=== PATIENT | female | born 1975 | race Caucasian/White ===

== ENCOUNTER 2023-10-09 04:46 | Inpatient (IN) ==
[2023-10-09] MEDS ORDERED: IOPAMIDOL 100 ML BOTTLE IV ONE (04:47)
[2023-10-09 06:06] LABS: Basophils # (Auto) 0.06 K/mcL (0.00-0.30); Basophils % (Auto) 0.6 % (0.0-2.0); Eosinophils # (Auto) 1.01 K/mcL (0.00-0.70); Eosinophils % (Auto) 10.8 % (0.0-7.0); Hemoglobin 12.6 g/dL (11.2-15.7); Lymphocytes # (Auto) 1.75 K/mcL (1.50-4.80); Lymphocytes % (Auto) 18.7 % (15.5-49.0); Mean Cell Volume 90.7 fL (80.0-100.0); Mean Corpuscular HGB Conc 33.2 g/dL (31.0-36.0); Mean Platelet Volume 11.8 fL (8.8-12.5); Monocytes # (Auto) 0.45 K/mcL (0.10-0.90); Monocytes % (Auto) 4.8 % (1.0-12.0); Neutrophils % (Auto) 64.9 % (38.0-78.0); Platelet Count 212 K/mcL (140-440); RBC 4.19 M/mcL (3.59-5.38); Red Cell Distribution Width 12.7 % (11.5-14.5); WBC 9.4 K/mcL (4.5-11.0)
[2023-10-09 06:09] LABS: ALT/SGPT < 5 U/L (<40); AST/SGOT 13 U/L (<32); Albumin 4.2 gm/dL (3.2-5.2); Albumin/Globulin Ratio 1.6 (1.0-2.3); Alkaline Phosphatase 64 U/L (39-117); Bilirubin,Total 0.3 mg/dL (0.1-1.0); Blood Urea Nitrogen 16 mg/dL (6-20); Calcium 9.1 mg/dL (8.6-10.4); Carbon Dioxide 23 mmol/L (22-30); Chloride 106 mmol/L (96-108); Globulin 2.7 gm/dL (2.2-3.7); Glomerular Filtration Rate 107; Glucose 97 mg/dL (70-105); Potassium 3.4 mmol/L (3.3-5.1); Sodium 141 mmol/L (133-145)
[2023-10-09] MEDS ORDERED: MAGNESIUM HYDROXIDE 30 ML ORAL.SUSP PO PRN (10:03)
[2023-10-09] MEDS ORDERED: HYDROmorphone 0.5 MG/0.5 ML SYRINGE IV PRN (10:03)
[2023-10-09] MEDS: 0.9 % SODIUM CHLORIDE 1,000 ML IV SCH (10:36)
[2023-10-09] MEDS: 0.9 % SODIUM CHLORIDE 10 ML SYRINGE IV SCH (13:26)
[2023-10-09] MEDS: ONDANSETRON 4 MG/2 ML VIAL IV PRN (15:02)
[2023-10-09] MEDS: metroNIDAZOLE 500 MG/100 ML BAG IV SCH (17:43)
[2023-10-09] MEDS: MAGNESIUM HYDROXIDE 30 ML ORAL.SUSP PT SCH (20:40)
[2023-10-09] MEDS: DOCUSATE SODIUM 10 MG/ML ML PT SCH (20:40)
[2023-10-09] MEDS: SENNOSIDES 1 TABLET PO SCH (20:41)
[2023-10-09] MEDS ORDERED: MAGNESIUM HYDROXIDE 30 ML ORAL.SUSP PT SCH (21:00)
[2023-10-10] MEDS: ACETAMINOPHEN 1,000 MG/100 ML BAG IV PRN (01:09)
[2023-10-10] MEDS: ACETAMINOPHEN 1,000 MG/100 ML BAG IV ONE (01:36)
[2023-10-10 06:25] LABS: Basophils # (Auto) 0.06 K/mcL (0.00-0.30); Eosinophils # (Auto) 0.58 K/mcL (0.00-0.70); Eosinophils % (Auto) 9.7 % (0.0-7.0); Hemoglobin 11.6 g/dL (11.2-15.7); Lymphocytes # (Auto) 1.94 K/mcL (1.50-4.80); Lymphocytes % (Auto) 32.6 % (15.5-49.0); Mean Cell Volume 93.1 fL (80.0-100.0); Mean Corpuscular HGB Conc 33.1 g/dL (31.0-36.0); Mean Platelet Volume 11.6 fL (8.8-12.5); Monocytes # (Auto) 0.39 K/mcL (0.10-0.90); Monocytes % (Auto) 6.5 % (1.0-12.0); Platelet Count 208 K/mcL (140-440); RBC 3.76 M/mcL (3.59-5.38); Red Cell Distribution Width 12.8 % (11.5-14.5)
[2023-10-10] MEDS: metroNIDAZOLE 500 MG/100 ML BAG IV SCH (15:31)
[2023-10-10] MEDS: metroNIDAZOLE 500 MG TABLET PO SCH (21:15)
[2023-10-10] MEDS ORDERED: metroNIDAZOLE 500 MG TABLET PO SCH (22:00)
[2023-10-11] MEDS: MONTELUKAST 10 MG TABLET PO SCH (21:06)
[2023-10-12 06:26] LABS: Basophils # (Auto) 0.07 K/mcL (0.00-0.30); Basophils % (Auto) 1.2 % (0.0-2.0); Eosinophils # (Auto) 0.61 K/mcL (0.00-0.70); Eosinophils % (Auto) 10.6 % (0.0-7.0); Hematocrit 33.2 % (34.1-44.9); Hemoglobin 11.1 g/dL (11.2-15.7); Lymphocytes # (Auto) 1.95 K/mcL (1.50-4.80); Mean Cell Volume 92.2 fL (80.0-100.0); Mean Corpuscular HGB Conc 33.4 g/dL (31.0-36.0); Mean Platelet Volume 11.7 fL (8.8-12.5); Monocytes # (Auto) 0.47 K/mcL (0.10-0.90); Monocytes % (Auto) 8.2 % (1.0-12.0); Platelet Count 188 K/mcL (140-440); Red Cell Distribution Width 12.9 % (11.5-14.5); WBC 5.7 K/mcL (4.5-11.0)
[2023-10-12 07:10] LABS: ALT/SGPT 6 U/L (<40); AST/SGOT 9 U/L (<32); Albumin 3.7 gm/dL (3.2-5.2); Albumin/Globulin Ratio 1.9 (1.0-2.3); Alkaline Phosphatase 48 U/L (39-117); Bilirubin,Direct < 0.2 mg/dL (0-0.3); Bilirubin,Total 0.2 mg/dL (0.1-1.0); Blood Urea Nitrogen 9 mg/dL (6-20); Calcium 8.6 mg/dL (8.6-10.4); Carbon Dioxide 24 mmol/L (22-30); Chloride 108 mmol/L (96-108); Glomerular Filtration Rate 113; Glucose 110 mg/dL (70-105); Lactate Dehydrogenase 133 U/L (135-225); Phosphorous 2.6 mg/dL (2.5-4.5); Potassium 3.7 mmol/L (3.3-5.1); Sodium 139 mmol/L (133-145); Triglycerides 37 mg/dL (<150)
[2023-10-12] MEDS ORDERED: metroNIDAZOLE 500 MG TABLET PO SCH (22:00)
== END 2023-10-12 17:50 | disposition home or self-care (01) | DRG 394 ==
LOC: ED 04:46 → MEDSUR 12:13
PROVIDERS: ADMIT Family Medicine Adult Medicine; ATTEND Family Medicine Adult Medicine